=== PATIENT | male | born 1970 | race Caucasian/White ===

== ENCOUNTER 2017-03-24 11:32 | Emergency (ER) | payer BC ==
[2017-03-24 12:20] LABS: #Basophils 0.1 thou/uL (0.0-0.2); #Eosinphils 0.1 thou/uL (0.0-0.7); #Lymphocytes 2.2 thou/uL (1.20-3.40); #Monocytes 0.8 thou/uL (0.11-0.59); %Basophils 1.1 % (0.0-1.0); %Lymphocytes 27.2 % (21.0-51.0); %Monocytes 9.5 % (0.0-10.0); %Neutrophils 61.2 % (42.0-75.0); Hemoglobin 13.6 g/dL (14.0-18.0); Mean Corpuscular HGB CONC 33.3 g/dL (32.0-36.0); Mean Corpuscular Hemoglobin 29.7 pg (27.0-31.0); Mean Corpuscular Volume 89.2 fl (80.0-94.0); Mean Platelet Volume 8.2 fL (7.4-10.4); Platelet Count 188 thou/uL (130-400); RBC Distribution Width 11.9 % (11.5-14.5); Red Blood Cell (RBC) Count 4.57 mill/uL (4.70-6.10); White Blood Cell (WBC) Count 8.1 thou/uL (4.8-10.8)
[2017-03-24 12:33] LABS: Anion Gap 13 mmol/L (10-20); BUN (Urea Nitrogen) 9 mg/dL (8.9-20.6); Calc. Creatinine Clearance 0 mL/min (70-130); Calcium 9.6 mg/dL (7.8-10.44); Carbon Dioxide 28 mmol/L (22-29); Chloride 103 mmol/L (98-107); Estimated GFR-MDRD Greater than 90; Glucose 84 mg/dL (70-105); Potassium 4.3 mmol/L (3.5-5.1); Sodium 140 mmol/L (136-145)
[2017-03-24 12:36] LABS: CKMB 1.7 ng/mL (0-6.6); Troponin I Less than 0.010 ng/mL (< 0.028)
[2017-03-24] MEDS ORDERED: Metoclopramide HCl 10 MG/2 ML VIAL ONE (13:43)
[2017-03-24] MEDS ORDERED: diphenhydrAMINE 50 MG/ML VIAL ONE (13:43)
[2017-03-24] MEDS ORDERED: Ketorolac Tromethamine 30 MG/ML VIAL ONE (14:49)
--- NOTE | 2017-03-24 15:28 | CT ---
CT BRAIN WITH IV CONTRAST CTA BRAIN WITH IV CONTRAST AND 3D POSTPROCESSING CTA NECK WITH IV CONTRAST AND 3D POSTPROCESSING: FINDINGS: No evidence of infarct, hemorrhage, mass, midline shift, or abnormal extraaxial fluid collections are seen. The ventricular size is normal and the basilar cisterns are patent. The bony calvarium is in tact. The visualized paranasal sinuses and mastoid air cells are well aerated. There is good flow in the intracranial portions of the vertebrobasilar and internal carotid artery sy stems without evidence of aneurysm, major branch occlusion, or significant stenosis. A origin o f the left [employer] is seen. A diminutive left vertebral artery is noted. The common carotid arteries and internal carotid arteries in the neck also demonstrate good flow. How ever, in the upper neck the arterial flow cannot be satisfactorily evaluated due to motion artifact. There is significant venous contamination. IMPRESSION: No significant abnormalities are seen. POS: [facility]
== END 2017-03-24 15:01 | disposition home or self-care (01) ==
LOC: SCSER 11:32
DX: R51 Headache (principal)
CPT/HCPCS: 70450; 70496; 70498; 80048; 82553; 84484; 85025; 93005; 96361; 96374; 96375; J1200; J1885; J2765

== ENCOUNTER 2018-05-11 15:04 | Emergency (ER) | payer BC ==
[2018-05-11] MEDS ORDERED: Iopamidol 370 76% 100 ML VIAL ONE (15:33)
[2018-05-11 15:35] LABS: #Basophils 0.1 thou/uL (0.0-0.2); #Eosinphils 0.1 thou/uL (0.0-0.7); #Monocytes 0.8 thou/uL (0.11-0.59); #Neutrophils 3.7 thou/uL (1.40-6.50); %Basophils 1.7 % (0.0-1.0); %Eosinophils 1.1 % (0.0-10.0); %Neutrophils 48.3 % (42.0-75.0); Hemoglobin 15.6 g/dL (14.0-18.0); Mean Corpuscular HGB CONC 32.8 g/dL (32.0-36.0); Mean Corpuscular Hemoglobin 29.5 pg (27.0-31.0); Mean Corpuscular Volume 89.9 fL (78.0-98.0); Platelet Count 219 thou/uL (130-400); RBC Distribution Width 12.4 % (11.5-14.5); Red Blood Cell (RBC) Count 5.29 mill/uL (4.70-6.10); White Blood Cell (WBC) Count 7.6 thou/uL (4.8-10.8)
[2018-05-11 15:47] LABS: ALT (SGPT) 20 U/L (8-55); AST (SGOT) 23 U/L (5-34); Albumin 4.5 g/dL (3.5-5.0); Alkaline Phosphatase 64 U/L (40-150); Anion Gap 14 mmol/L (10-20); BUN (Urea Nitrogen) 13 mg/dL (8.9-20.6); Bilirubin, Total 0.9 mg/dL (0.2-1.2); CK (CPK) 292 U/L (30-200); Calc. Creatinine Clearance 0 mL/min (70-130); Calcium 9.9 mg/dL (7.8-10.44); Carbon Dioxide 27 mmol/L (22-29); Chloride 103 mmol/L (98-107); Estimated GFR-MDRD 88; Globulin 2.7 g/dL (2.4-3.5); Glucose 96 mg/dL (70-105); Potassium 3.6 mmol/L (3.5-5.1); Protein, Total 7.2 g/dL (6.0-8.3); Sodium 140 mmol/L (136-145)
[2018-05-11] MEDS ORDERED: Aspirin Chewable 81 MG TAB ONE (16:05)
--- NOTE | 2018-05-11 16:16 | CT ---
CT PULMONARY ANGIOGRAM WITH IV CONTRAST AND 3D POST PROCESSING: HISTORY: Pleuritic chest pain. Long flight. FINDINGS: There is good contrast opacification of the pulmonary arterial vasculature without filling defects to suggest pulmonary embolism. The thoracic aorta is well opacified without aneurysm or dissection. N o pleural or pericardial effusions are seen. No pneumothoraces, lobar areas of consolidation, or pul monary nodules/masses are identified. No acute osseous abnormalities are identified. IMPRESSION: No CT evidence of pulmonary embolism. POS: [facility]
--- NOTE | 2018-05-11 16:18 | RAD ---
PORTABLE CHEST 1 VIEW: Date: 05/11/18 Time: 1532 hours HISTORY: Chest pain. FINDINGS: The heart size is normal. The lungs are well expanded without focal areas of consolidation, pneumotho races, or pleural effusions. IMPRESSION: No acute process. POS: [facility]
--- NOTE | 2018-05-11 20:02 | ULT ---
BILATERAL LOWER EXTREMITY VENOUS DOPPLER ULTRASOUND: HISTORY: Left lower extremity pain. The patient was on a long flight. TECHNIQUE: Jimenez-scale ultrasound with color-flow and spectral Doppler imaging of the deep venous systems of the lower extremities is performed bilaterally. FINDINGS: There is good flow, compression, and augmentation noted in the common femoral, femoral, deep femoral, popliteal, posterior tibial, and greater saphenous veins on either side. IMPRESSION: No evidence of deep venous thrombosis in either lower extremity. POS: [facility]
== END 2018-05-11 20:24 | disposition home or self-care (01) ==
LOC: SCSER 15:04
DX: R07.89 Other chest pain (principal)
CPT/HCPCS: 36415; 71045; 71275; 80053; 82550; 84484; 85025; 93005; 93970; 94760; 96360

== ENCOUNTER 2018-08-05 07:31 | Outpatient (CLI) | payer BC ==
--- NOTE | 2018-08-05 08:32 | CT ---
CT HEAD WITHOUT IV CONTRAST COMPARISON: 03/24/2017 HISTORY: Concussion. Patient hit by soccer ball in right side of head. Patient has been having lightheaded ep isodes with dizziness and several severe headaches over the last month. TECHNIQUE: Axial CT imaging at 5 mm intervals from vertex through skull base without contrast FINDINGS: There is no evidence of an acute infarction, hemorrhage, mass effect, or midline shift. The ventricul ar system is normal in size, shape, and position. Visualized paranasal sinuses are clear. Osseous structures appear intact. CT of the head is stable when compared to prior study. IMPRESSION: 1. No acute intracranial abnormality demonstrated.
== END 2018-08-05 07:32 | disposition home or self-care (01) ==
LOC: SCSCT 07:31
PROVIDERS: ATTEND Family Medicine
DX: S06.0X0A Concussion without loss of consciousness, initial encounter (principal); R42 Dizziness and giddiness
CPT/HCPCS: 70450

== ENCOUNTER 2020-08-08 18:30 | Outpatient (CLI) | payer BC | END 2020-08-08 18:31 | disposition home or self-care (01) | LOC: SLEEPLAB 18:30 | PROVIDERS: ATTEND Family Medicine | DX: G47.33 Obstructive sleep apnea (adult) (pediatric) (principal); R53.83 Other fatigue; G47.00 Insomnia, unspecified | CPT/HCPCS: 95806 ==

== ENCOUNTER 2020-09-28 19:00 | Outpatient (CLI) | payer BC | END 2020-09-28 19:01 | disposition home or self-care (01) | LOC: SLEEPLAB 19:00 | PROVIDERS: ATTEND Family Medicine | DX: G47.33 Obstructive sleep apnea (adult) (pediatric) (principal); R53.83 Other fatigue; G47.10 Hypersomnia, unspecified; I10 Essential (primary) hypertension; K21.9 Gastro-esophageal reflux disease without esophagitis; G47.00 Insomnia, unspecified | CPT/HCPCS: 95810 ==

== ENCOUNTER 2021-02-23 12:58 | Outpatient (CLI) | payer BC | END 2021-02-23 12:59 | disposition home or self-care (01) | LOC: TBSIIMAG 12:58 | PROVIDERS: ATTEND Urology | DX: N41.0 Acute prostatitis (principal) | CPT/HCPCS: 72197 ==

== ENCOUNTER 2023-01-04 09:07 | Outpatient (CLI) | payer BC | END 2023-01-04 09:08 | disposition home or self-care (01) | LOC: SCSRAD 09:07 | PROVIDERS: ATTEND Nurse Practitioner Family | DX: S49.92XA Unspecified injury of left shoulder and upper arm, initial encounter (principal) ==

== ENCOUNTER 2023-03-07 13:54 | Outpatient (CLI) | payer BC | END 2023-03-07 13:55 | disposition home or self-care (01) | LOC: SCSMRI 13:54 | PROVIDERS: ATTEND Orthopaedic Surgery | DX: M24.812 Other specific joint derangements of left shoulder, not elsewhere classified (principal); M25.412 Effusion, left shoulder ==

== ENCOUNTER 2023-05-07 15:48 | Outpatient (CLI) | payer BC ==
[2023-05-07 16:36] LABS: #Basophils 0.1 10x3/uL (0.0-0.2); #Eosinphils 0.1 10x3/uL (0.0-0.5); #Monocytes 0.6 10x3/uL (0.0-1.1); #Neutrophils 3.7 10x3/uL (1.5-8.4); %Basophils 0.7 % (0.0-2.0); %Lymphocytes 34.3 % (18.0-47.0); %Monocytes 9.4 % (0.0-10.0); %Neutrophils 54.5 % (40.0-75.0); Hemoglobin 14.4 g/dL (13.5-17.5); Mean Corpuscular HGB CONC 34.3 g/dL (32.0-36.0); Mean Corpuscular Hemoglobin 31.6 pg (27.0-33.0); Mean Corpuscular Volume 92.3 fl (81.2-95.1); Mean Platelet Volume 10.7 fl (7.4-10.4); Platelet Count 216 10x3/uL (150-450); RBC Distribution Width 14.2 % (11.5-14.5); Red Blood Cell (RBC) Count 4.55 10x6/uL (4.32-5.72); White Blood Cell (WBC) Count 6.7 10x3/uL (3.5-10.5)
[2023-05-07 16:53] LABS: Anion Gap 8 mmol/L (10-20); BUN (Urea Nitrogen) 17 mg/dL (8.4-25.7); Calc. Creatinine Clearance 0 mL/min (70-130); Calcium 8.9 mg/dL (7.8-10.44); Carbon Dioxide 30 mmol/L (22-29); Chloride 103 mmol/L (98-107); Estimated GFR 101; Glucose 94 mg/dL (70-105); Potassium 4.1 mmol/L (3.5-5.1); Sodium 137 mmol/L (136-145)
== END 2023-05-07 15:49 | disposition home or self-care (01) ==
LOC: LABBT 15:48
PROVIDERS: ATTEND Orthopaedic Surgery
DX: Z01.818 Encounter for other preprocedural examination (principal); S46.209A Unspecified injury of muscle, fascia and tendon of other parts of biceps, unspecified arm, initial encounter
CPT/HCPCS: 80048; 85025; 93005; 93010